=== PATIENT | male | born 1995 | race Two or more races ===

== ENCOUNTER 2016-03-15 18:08 | Inpatient (IN) | payer MEDICAID ==
[~2016-03-15] VITALS: Ht 165.1 cm; Wt 62.6 kg
[2016-03-15 18:55] LABS: BASOPHILS # (AUTO) 0.05 K/uL (0.00-0.20); BASOPHILS % (AUTO) 0.6 % (0.0-2.0); EOSINOPHILS # (AUTO) 0.61 K/uL (0.00-0.70); EOSINOPHILS % (AUTO) 7.03 % (1.0-6.0); HEMATOCRIT 46.7 % (41-53); HEMOGLOBIN 15.8 g/dL (13.5-17.5); LYMPHOCYTES # (AUTO) 3.5 K/uL (1.0-4.8); LYMPHOCYTES % (AUTO) 40.1 % (22.0-44.0); MEAN CORPUSCULAR HGB CONC 33.8 G/dL (31.0-37.0); MEAN CORPUSCULAR VOLUME 83 fL (80-100); MONOCYTES # (AUTO) 0.7 K/uL (0.1-1.0); MONOCYTES % (AUTO) 7.9 % (2.0-9.0); NEUTROPHILS # (AUTO) 3.8 K/uL (1.8-7.7); NEUTROPHILS % (AUTO) 44.4 % (40.0-70.0); PLATELET COUNT (AUTO) 421 K/uL (150-450); RED BLOOD CELL COUNT(AUTO) 5.64 MIL/uL (4.50-5.90); RED CELL DISTRIBUTION WIDTH 14.1 % (11.5-14.5); WHITE BLOOD COUNT (AUTO) 8.6 K/uL (4.5-11.0)
[2016-03-15 19:07] LABS: ANION GAP 5 mmol/L (8-16); CALCIUM, TOTAL 9.2 mg/dL (8.8-10.5); CARBON DIOXIDE 31 mmol/L (22-29); CHLORIDE 102 mmol/L (98-107); CREATININE 0.92 mg/dL (0.60-1.30); GLOMERULAR FILTR. RATE CALC > 60 mL/min (>60); POTASSIUM 4.4 mmol/L (3.5-5.1); SODIUM SERUM 138 mmol/L (136-145); UREA NITROGEN, BLOOD 15 mg/dL (7-18)
[2016-03-15 19:13] LABS: ALANINE AMINOTRANSFERASE 33 U/L (12-78); ALBUMIN 3.7 g/dL (3.4-5.0); ASPARTATE AMINOTRANSFERASE 22 U/L (15-37); BILIRUBIN,TOTAL 0.1 mg/dL (0.1-1.0); TOTAL PROTEIN, SERUM 7.3 g/dL (6.4-8.2)
[2016-03-15] MEDS ORDERED: ZOLPIDEM TARTRATE 10 MG TABLET PO PRN (21:00)
[2016-03-15] MEDS ORDERED: LORazepam 2 MG TABLET PO PRN (21:00)
[2016-03-15] MEDS ORDERED: HALOPERIDOL 5 MG TABLET PO PRN (21:00)
[2016-03-15 22:34] LABS: APPEARANCE,URINE CLEAR (CLEAR); GLUCOSE, URINE (UA) NEGATIVE (NEGATIVE); KETONES,URINE NEGATIVE (NEGATIVE); LEUKOCYTE ESTERASE ,URINE NEGATIVE (NEGATIVE); OCCULT BLOOD,URINE NEGATIVE (NEGATIVE); PH,URINE 6.5 (5.0-8.0); PROTEIN,URINE NEGATIVE (NEGATIVE)
[2016-03-15 22:37] LABS: ADD UA MICROSCOPIC NO
[2016-03-16 01:47] VITALS: BP 121/87
[2016-03-16] MEDS ORDERED: PNEUMOCOCCAL VACCINE POLYVALENT 0.5 ML VIAL [PPSV23] IM ONE (03:30)
[2016-03-16] MEDS ORDERED: INFLUENZA VIRUS VACCINE QVS 2016-17 (3YR+)/PF 60 MCG/0.5 ML SYRINGE IM ONE (03:30)
[2016-03-16] MEDS: OLANZapine 5 MG RAPDIS TABLET PO SCH ×2 (09:44→17:49)
[2016-03-16 11:21] VITALS: BP 130/80
[2016-03-16 16:41] VITALS: BP 126/76
[2016-03-17 08:01] VITALS: BP 126/78
[2016-03-17] MEDS: OLANZapine 5 MG RAPDIS TABLET PO SCH ×2 (10:07→17:55)
[2016-03-17 18:17] VITALS: BP 123/81
[2016-03-18 08:30] VITALS: BP 119/76
[2016-03-18] MEDS: OLANZapine 5 MG RAPDIS TABLET PO SCH ×2 (09:15→17:00)
[2016-03-18 16:30] VITALS: BP 120/77
[2016-03-19 08:00] VITALS: BP 118/79
[2016-03-19] MEDS: OLANZapine 5 MG RAPDIS TABLET PO SCH ×2 (09:16→17:24)
[2016-03-19] MEDS ORDERED: OLAN5Z PO (14:31)
[2016-03-19 16:11] VITALS: BP 135/78
[2016-03-20 08:00] VITALS: BP 116/76
[2016-03-20] MEDS: OLANZapine 5 MG RAPDIS TABLET PO SCH ×2 (09:19→16:16)
[2016-03-20 17:00] VITALS: BP 135/88
[2016-03-21 08:30] VITALS: BP 132/66
[2016-03-21] MEDS: OLANZapine 5 MG RAPDIS TABLET PO SCH ×2 (09:23→16:03)
[2016-03-21 18:26] VITALS: BP 112/62
[2016-03-22 08:31] VITALS: BP 126/66
[2016-03-22] MEDS: OLANZapine 5 MG RAPDIS TABLET PO SCH ×2 (09:27→16:21)
== END 2016-03-22 22:15 | disposition home or self-care (01) | DRG 753 ==
LOC: EMS 18:12 → 3EI 22:38
PROVIDERS: ADMIT Psychiatry & Neurology Child & Adolescent Psychiatry; ATTEND Psychiatry & Neurology Child & Adolescent Psychiatry
PROC: 3E0234Z Introduction of Serum, Toxoid and Vaccine into Muscle, Percutaneous Approach (ICD-10-PCS; principal; 2016-03-16)
PROC: 3E0234Z Introduction of Serum, Toxoid and Vaccine into Muscle, Percutaneous Approach (ICD-10-PCS; 2016-03-16)
DX: F31.2 Bipolar disorder, current episode manic severe with psychotic features (principal); Z91.14 Patient's other noncompliance with medication regimen; F15.10 Other stimulant abuse, uncomplicated; F17.210 Nicotine dependence, cigarettes, uncomplicated; J45.909 Unspecified asthma, uncomplicated; F41.9 Anxiety disorder, unspecified; Z79.899 Other long term (current) drug therapy; Z23 Encounter for immunization
CPT/HCPCS: 99285; G0480